=== PATIENT | male | born 2000 | race Caucasian/White ===

== ENCOUNTER 2023-07-20 04:07 | Outpatient (CLI) | payer BC, MEDICAID, SELFPAY | END 2023-07-20 04:08 | disposition home or self-care (01) | LOC: AMB 07-26 05:50 | PROVIDERS: Visit Provider Family Medicine | DX: T39.312A Poisoning by propionic acid derivatives, intentional self-harm, initial encounter (principal); Y92.007 Garden or yard of unspecified non-institutional (private) residence as the place of occurrence of the external cause | CPT/HCPCS: A0425; A0427 ==